=== PATIENT | female | born 1940 | race Caucasian/White ===

== ENCOUNTER 2017-09-16 12:32 | Emergency (ER) | payer OTHER ==
[~2017-09-16] VITALS: Ht 160 cm; Wt 63.5 kg
--- NOTE | 2017-09-16 13:11 | Diagnostic Imaging Report ---
PROCEDURE:HIP RIGHT 2-3 VW (+/- PELVIS) INDICATION:Pain COMPARISON:None. FINDINGS:There is joint space narrowing involving the right hip. Partially visualized left hip total prosthesis. No dislocation. Multiple injection granulomas. Cement present within the L5 vertebral body. There is vascular calcification. CONCLUSION:Mild joint space narrowing. Mitchell Dawson D.O. Dictated by: Mitchell Dawson D.O. on 09/16/2017 at 13:13 Electronically approved by: Mitchell Dawson D.O. on 09/16/2017 at 13:13
[2017-09-16 13:40] LABS: BASOPHILS % 0.4 % (0.0-1.0); EOSINOPHILS # (AUTO) 0.1 (0.0-0.4); EOSINOPHILS % 1.9 % (0.0-6.0); HEMATOCRIT 35.4 % (34.2-44.1); HEMOGLOBIN 11.2 g/dL (12.0-16.0); LYMPHOCYTES % 27.3 % (18.0-39.1); MEAN CORPUSCULAR HEMOGLOBIN 28.4 pg (28-32); MEAN CORPUSCULAR HGB CONC 31.6 g/dL (31-35); MEAN CORPUSCULAR VOLUME 89.8 fL (81-99); MONOCYTES # (AUTO) 0.6 (0.2-0.8); MONOCYTES % 8.5 % (4.4-11.3); NEUTROPHILS # (AUTO) 4.6 (2.1-6.9); NEUTROPHILS % 61.5 % (38.7-80.0); PLATELET COUNT 272 x10e3/uL (140-360); RED BLOOD COUNT 3.94 x10e6/uL (3.6-5.1); RED CELL DISTRIBUTION WIDTH 13.9 % (11.7-14.4)
[2017-09-16] MEDS: ONDANSETRON HCL INJ 2 MG/ML VIAL IV STA (13:40)
[2017-09-16] MEDS: MORPHINE SULFATE 2 MG/ML SYR IV STA ×2 (13:40→16:21)
[2017-09-16 13:54] LABS: ALBUMIN 3.5 g/dL (3.5-5.0); ALBUMIN/GLOBULIN RATIO 0.8 (0.8-2.0); ALKALINE PHOSPHATASE 188 IU/L (40-150); BLOOD UREA NITROGEN 20 mg/dL (7-26); BUN/CREATININE RATIO 21 (6-25); CALCIUM 9.5 mg/dL (8.4-10.2); CARBON DIOXIDE 26 mmol/L (22-29); CHLORIDE 103 mmol/L (98-107); CREATININE, SERUM 0.96 mg/dL (0.57-1.11); EST GLOMERULAR FILTRATION RATE 56 ML/MIN (60-); GLUCOSE 115 mg/dL (74-118); SODIUM 139 mmol/L (136-145)
[2017-09-16 13:55] LABS: ALANINE AMINOTRANSFERASE < 6 IU/L (0-55)
--- NOTE | 2017-09-16 15:42 | Diagnostic Imaging Report ---
PROCEDURE: CT ABDOMEN AND PELVIS WITHOUT CONTRAST TECHNIQUE: The abdomen and pelvis were scanned utilizing a multidetector helical scanner from the diaphragm to the lesser trochanter without IV contrast. Coronal and sagittal multiplanar reformations were obtained. DLP: 359.92 mGy-cm COMPARISON: None. INDICATIONS: KIDNEY STONES FINDINGS: ABSENCE OF INTRAVENOUS CONTRAST DECREASES SENSITIVITY FOR DETECTION OF FOCAL LESIONS AND VASCULAR PATHOLOGY. LOWER THORAX: Normal. HEPATOBILIARY: No focal hepatic lesions. No biliary ductal dilatation. The gallbladder is distended. SPLEEN: No splenomegaly. PANCREAS: No focal masses or ductal dilatation. ADRENALS: No adrenal nodules. KIDNEYS/URETERS: There is a 6 mm left upper and lower pole nonobstructing stone. Contour abnormality of the left upper pole region may represent a cyst but indeterminate without IV contrast. Multiple calcifications within the kidneys likely is vascular. Duplicated right collecting system. PELVIC ORGANS/BLADDER: Unremarkable. PERITONEUM / RETROPERITONEUM: No free air or fluid. LYMPH NODES: No lymphadenopathy. VESSELS: There is a 3.1 cm infrarenal aortic aneurysm. GI TRACT: No distention or wall thickening. Multiple diverticula. BONES AND SOFT TISSUES: Bony osteopenia and degenerative changes. Soft tissue calcification compatible with injection granulomas. Left femoral total hip replacement. Cement within the L5 vertebral body. Compression abnormality of L3. IMPRESSION: 1. There are 2 nonobstructing left renal stones. 2. Multiple renal calcifications likely are vascular in origin. 3. Compression abnormality of L3. 4. Infrarenal abdominal aortic aneurysm. 5. The gallbladder is distended. Mitchell Dawson D.O. Dictated by: Mitchell Dawson D.O. on 09/16/2017 at 15:43 Electronically approved by: Mitchell Dawson D.O. on 09/16/2017 at 15:43
[2017-09-16] MEDS ORDERED: ULTRAM50 MG PO (16:15)
[2017-09-16 16:24] VITALS: BP 145/72
== END 2017-09-16 16:46 | disposition home or self-care (01) ==
LOC: ER 12:32
DX: M25.551 Pain in right hip (principal); M85.89 Other specified disorders of bone density and structure, multiple sites; M48.56XA Collapsed vertebra, not elsewhere classified, lumbar region, initial encounter for fracture
CPT/HCPCS: 36415; 73502; 74176; 80053; 85025; 99284; J2270; J2405